=== PATIENT | female | born 1980 | race Caucasian/White ===

== ENCOUNTER 2018-03-24 23:42 | Emergency (ER) | payer BC, SELFPAY ==
--- OUTSIDE RECORDS SUMMARY | 2018-03-24 23:44 | XMS REPORT ---
:1980 Author Organization [employer] Care Team Providers Name Role Phone Joycelyn Fields Provider Role Unavailable Allergies, Adverse Reactions, Alerts Substance Reaction Event Type Iodine Info Not Available Drug Allergy Problems Problem Type Condition Code Onset Dates Condition Status Assessment Well woman exam with routine Z01.419 Active gynecological exam Assessment Thyroid nodule E04.1 Active Problem Thyroid nodule E04.1 Active Assessment Encounter for surveillance of Z30.44 Active vaginal ring hormonal contraceptive device Medications Medication Code System Code Instructions Start Date End Date Status Dosage NuvaRing [facility] [id number] 0.12-0.015 Active 1 ring MG/24HR Vaginal 1 ring q 3 weeks Results No Known Results Summary Purpose [employer] Submission
--- OUTSIDE RECORDS SUMMARY | 2018-03-24 23:44 | XMS REPORT | Clinical Summary ---
:1980 Author Organization [facility] Address [address] [place] [address] Care Team Providers Name Role Phone Laz Rosa MD Primary Care Provider Allergies Active Allergy Reactions Severity Noted Date Comments Iodine High 03/01/2018 Facial swelling/redness, watery eyes. Current Medications Prescription Sig. Disp. Refills Start Date End Date Status levothyroxine Take 25 mcg by Active (SYNTHROID, LEVOXYL) mouth every 25 mcg tablet morning. etonogestrel-ethinyl Insert 1 each into Active estradiol (NUVARING) the vagina every 0.12-0.015 mg/24 hr 28 days. Insert vaginal ring vaginally and leave in place for 3 consecutive weeks, then remove for 1 week. traZODone (DESYREL) Take 100 mg by Active 100 MG tablet mouth nightly. multivitamin Take 1 tablet by Active (THERAGRAN) tablet mouth daily. docosahexanoic Take by mouth Active acid/epa (FISH OIL daily. ORAL) cyanocobalamin, Take by mouth Active vitamin B-12, daily. (VITAMIN B-12 ORAL) cholecalciferol, Take by mouth Active vitamin D3, (VITAMIN daily. D3 ORAL) SELENIUM ORAL Take by mouth Active daily. ferrous sulfate, Take by mouth Active dried (IRON, DRIED, daily. ORAL) MAGNESIUM ORAL Take by mouth Active daily. MELATONIN ORAL Take by mouth Active nightly. acetaminophen-codein Take 1 tablet by 30 tablet 0 03/14/2018 e (TYLENOL WITH mouth every 4 8 CODEINE #3) 300-30 (four) hours as mg per tablet needed for moderate pain for up to 7 days. docusate sodium Take 1 capsule 10 capsule 0 03/14/2018 (COLACE) 100 MG (100 mg total) by 8 capsule mouth daily as needed for constipation for up to 5 days. Active Problems Problem Noted Date Neck mass 03/14/2018 Encounters Date Type Specialty Care Team Description 03/15/2018 Patient Outreach Pippa Velasquez RN 03/14/2018 - Hospital Encounter General Internal Melvin Fuentes Neck mass; 03/15/2018 Medicine MD Baldo Multinodular goiter 03/14/2018 Anesthesia Event Plastic Surgery Lolis Herrera MD 03/14/2018 Procedure Pass Plastic Surgery 03/14/2018 Surgery Plastic Surgery Melvin Fuentes EXCISION OF ANTERIOR MD Baldo NECK MASS, RIGHT THYROID LOBECTOMY POSSIBLE TOTAL THYROIDECTOMY 03/01/2018 Pre-Admit Testing Pre-Admission Melvin Fuentes Preop examination Appointment Testing MD Baldo (Primary Dx) 03/01/2018 Anesthesia Event Pre-Admission Enzo Bates NP 02/08/2018 Hospital Encounter Radiology Melvin Fuentes Multinodular goiter ; MD Baldo Neck mass 02/08/2018 Hospital Encounter Radiology Melvin Fuentes Multinodular goiter ; MD Baldo Neck mass 02/08/2018 Hospital Encounter Radiology Melvin Fuentes Multinodular goiter ; MD Baldo Neck mass 02/08/2018 Ancillary Orders Radiology Melvin Fuentes Multinodular goiter; MD Baldo Neck mass 01/30/2018 Transcribe Orders Radiology Melvin Fuentes Multinodular goiter (Primary Dx); MD Baldo Neck mass 01/25/2018 Hospital Encounter Melvin Mendez MD 01/25/2018 Ancillary Orders Radiology Melvin Fuentes MD after 03/23/2017 Social History Tobacco Use Types Packs/Day Years Used Date Never Smoker Smokeless Tobacco: Never Used Alcohol Use Drinks/Week oz/Week Comments Yes 4-5 Standard drinks or equivalent 2.4 - 3.0 Sex Assigned at Date Recorded Not on file Last Filed Vital Signs Vital Sign Reading Time Taken Blood Pressure 117/61 03/15/2018 8:29 AM CDT Pulse 65 03/15/2018 8:29 AM CDT Temperature 36.1 C (96.9 F) 03/15/2018 8:29 AM CDT Respiratory Rate 18 03/15/2018 8:29 AM CDT Oxygen Saturation 97% 03/15/2018 8:29 AM CDT Inhaled Oxygen Concentration - - Weight 89.4 kg (197 lb) 03/14/2018 7:54 AM CDT Height 172.7 cm (5' 8") 03/01/2018 2:51 PM CDT Body Mass Index 29.95 03/14/2018 7:54 AM CDT Plan of Treatment Health Maintenance Due Date Last Done Comments CERVICAL CANCER SCREENING 1999 INFLUENZA VACCINE 05/23/2018 Implants Implanted Type Area Director [employer] Device Expiration Model / Identifier Date Serial / Lot Drain Wnd 1/8in 49in Rnd End Perfrtn W/ Trocar 10in Hol Ptrn - [id number] Surgical Left: [employer] 01/20/2023 [id number] / Implanted: 03/14/2018 (Quantity not on file) Implants; Neck DIVISION / Expanders; [id number] Extenders; Surgical Wires Procedures Procedure Name Priority Date/Time Associated Diagnosis Comments ANESTHESIA INTUBATION Routine 03/14/2018 10:18 AM CDT Procedure Note - Dulec Higgins, BUSINESS DEVELOPMENT SALES EXECUTIVE - 03/14/2018 10:18 AM CDT Airway Date/Time: 03/14/2018 9:17 AM Performed by: DULCE HIGGINS Authorized by: LOLIS HERRERA Location: OR Difficult Airway: No Anesthesiologist: LOLIS HERRERA Resident/BUSINESS DEVELOPMENT SALES EXECUTIVE/AA: DULCE HIGGINS Performed by: resident/BUSINESS DEVELOPMENT SALES EXECUTIVE/AA Preoxygenated with 100% O2: Yes C-spine Precautions Maintained Throughout: Yes Mask Ventilation: Assisted mask (#8 OPA) Final Airway Type: Endotracheal airway Final Endotracheal Airway: Reinforced tube and ETT Cuffed: Yes Technique Used: Direct laryngoscopy Devices/Methods Used in Placement: Intubating stylet Insertion Site: Oral Blade Type: Rabago Laryngoscope Blade/Videolaryngoscope Blade Size: 2 ETT Size (mm): 6.5 Cuff at minimum occlusion pressure: Yes Measured from: Lips ETT to Lips (cm): 22 Placement Verified by: CO2 detection, direct visualization and equal breath sounds Laryngoscopic view: Grade I - full view of glottis Rapid Sequence Induction (RSI): No Modified RSI: No Number of Attempts at Approach: 1 Atraumatic; Dentition unchanged/intact EXCISION OF ANTERIOR NECK MASS, RIGHT THYROID 03/14/2018 9:35 AM CDT Neck mass LOBECTOMY POSSIBLE TOTAL THYROIDECTOMY Special Needs POSSIBLE EXTENDED RECOVERY NEEDED after 03/23/2017 Results Estimated GFR (03/15/2018 4:40 AM)Only the most recent of3 resultswithin the time period is included. Component Value Ref Range GFR Non Af Amer >90 mL/min/1.73 m2 GFR Af Amer >90 mL/min/1.73 m2 Comment: Chronic kidney disease: <60 mL/min/1.73m2 Kidney failure: <15 mL/min/1.73m2 The estimated GFR is calculated from the IDMS-traceable Modification of Diet in Renal Disease Equation. The accuracy of the calculation is poor when the creatinine is normal. Calculated values >90 mL/min/1.73m2 are not reported. This equation has not been validated in children (<18 years), women, the elderly (>70 years), or ethnic groups other than Caucasians and Americans. Specimen Performing Laboratory Plasma specimen [facility] DEPARTMENT OF PATHOLOGY AND GENOMIC MEDICINE [address] [place] [id number] CBC with platelet and differential (03/15/2018 4:40 AM) Component Value Ref Range WBC 9.01 4.50 - 11.00 k/uL RBC 3.88 (L) 4.20 - 5.50 m/uL HGB 12.4 12.0 - 16.0 g/dL HCT 36.2 (L) 37.0 - 47.0 % MCV 93.3 82.0 - 100.0 fL MCH 32.0 27.0 - 34.0 pg MCHC 34.3 31.0 - 37.0 g/dL RDW - SD 39.8 37.0 - 55.0 fL MPV 9.3 8.8 - 13.2 fL Platelet count 204 150 - 400 k/uL Nucleated RBC 0.00 /100 WBC Neutrophils 87.2 (H) 39.0 - 69.0 % Lymphocytes 8.3 (L) 25.0 - 45.0 % Monocytes 4.1 0.0 - 10.0 % Eosinophils 0.0 0.0 - 5.0 % Basophils 0.1 0.0 - 1.0 % Immature granulocytes 0.3Comment: "Immature granulocytes" 0.0 - 1.0 % (promyelocytes, myelocytes, metamyelocytes) Specimen Performing Laboratory Blood [facility] DEPARTMENT OF PATHOLOGY AND GENOMIC MEDICINE [address] [place] [id number] Phosphorus level (03/15/2018 4:40 AM) Component Value Ref Range Phosphorus 4.1 2.4 - 4.5 mg/dL Specimen Performing Laboratory Plasma specimen [facility] DEPARTMENT PATHOLOGY [facility] MEDICINE [address] [place] [address] Magnesium level (03/15/2018 4:40 AM) Component Value Ref Range Magnesium 2.0 1.6 - 2.6 mg/dL Specimen Performing Laboratory Plasma specimen [facility] DEPARTMENT PATHOLOGY AND [facility] MEDICINE [address] [place] [id number] Basic metabolic panel (03/15/2018 4:40 AM)Only the most recent of2 resultswithin the time period is included. Component Value Ref Range Sodium 140 135 - 148 mEq/L Potassium 4.0 3.5 - 5.0 mEq/L Chloride 103 98 - 112 mEq/L CO2 24 24 - 31 mEq/L Anion gap 13@ANIO 7 - 15 mEq/L BUN 9 6 - 20 mg/dL Creatinine 0.7 0.5 - 0.9 mg/dL Glucose 151 (H) 65 - 99 mg/dL Calcium 8.7 8.3 - 10.2 mg/dL Specimen Performing Laboratory Plasma specimen [facility] DEPARTMENT OF PATHOLOGY [address] [address] Parathyroid hormone (03/14/2018 10:00 PM) Component Value Ref Range PTH 32 15 - 65 pg/mL Specimen Performing Laboratory Blood [facility] DEPARTMENT OF PATHOLOGY AND [facility] MEDICINE [address] [place] [address] Albumin level (03/14/2018 10:00 PM) Component Value Ref Range Albumin 3.1 (L) 3.5 - 5.0 g/dL Specimen Performing Laboratory Plasma specimen [facility] DEPARTMENT OF PATHOLOGY [facility] MEDICINE [address] [place] [id number] Surgical pathology request (03/14/2018 11:15 AM) Component Value Ref Range Surgical pathology report See link below for PDF Lab Report Result status This is Final Report to [id number] Specimen Performing Laboratory [facility] DEPARTMENT OF PATHOLOGY AND GENOMIC MEDICINE [address] [place] [id number] POC , urine (03/14/2018 7:54 AM) Component Value Ref Range test urine, POC Negative QC done Yes Specimen Performing Laboratory Urine CBC hemogram (03/01/2018 3:07 PM) Component Value Ref Range WBC 6.39 4.50 - 11.00 k/uL RBC 3.94 (L) 4.20 - 5.50 m/uL HGB 12.8 12.0 - 16.0 g/dL HCT 37.2 37.0 - 47.0 % MCV 94.4 82.0 - 100.0 fL MCH 32.5 27.0 - 34.0 pg MCHC 34.4 31.0 - 37.0 g/dL RDW - SD 40.0 37.0 - 55.0 fL MPV 9.5 8.8 - 13.2 fL Platelet count 196 150 - 400 k/uL Nucleated RBC 0.00 /100 WBC Specimen Performing Laboratory Blood [facility] DEPARTMENT OF PATHOLOGY AND [facility] [address] [place] [address] Comprehensive metabolic panel (03/01/2018 3:07 PM) Component Value Ref Range Sodium 141 135 - 148 mEq/L Potassium 4.0 3.5 - 5.0 mEq/L Chloride 104 98 - 112 mEq/L CO2 25 24 - 31 mEq/L Anion gap 12 7 - 15 mEq/L Comment: Starting from January , anion gap calculation no longer incorporates potassium. Please note the change. BUN 13 6 - 20 mg/dL Creatinine 0.8 0.5 - 0.9 mg/dL Glucose 93 65 - 99 mg/dL Calcium 9.3 8.3 - 10.2 mg/dL Protein 7.1 6.3 - 8.3 g/dL Comment: [place] 4.6-7.0 g/dL 1 week 4.4-7.6 g/dL 7 months-1year5.1-7.3 g/dL 1-2 years5.6-7.5 g/dL >3 years6.0-8.0 g/dL 18-150 6.3-8.3 g/dL Albumin 3.4 (L) 3.5 - 5.0 g/dL A/G ratio 0.9 0.7 - 3.8 Alkaline phosphatase 59 35 - 104 U/L AST 18 10 - 35 U/L ALT 20 5 - 50 U/L Total bilirubin <0.2 0.0 - 1.2 mg/dL Specimen Performing Laboratory Plasma specimen [facility] DEPARTMENT OF PATHOLOGY AND [facility] MEDICINE [address] [place] [address] Cytology (non-gynecological) request (02/08/2018 12:56 PM)Only the most recent of2 resultswithin the time period is included. Component Value Ref Range Cytology (non-gynecological) report See link below for PDF Lab Report Result status This is Final Report to [id number] Specimen Performing Laboratory [facility] DEPARTMENT OF PATHOLOGY AND GENOMIC MEDICINE [address] [place] [address] US Needle Biopsy (02/08/2018 12:50 PM) Specimen Performing Laboratory [facility] [address] [place] [address] Narrative EXAMINATION:US NEEDLE BIOPSY CLINICAL HISTORY:E04.2 Nontoxic multinodular goiter, R22.1 Localized swellingmass and lumpneck, E04.2 - R22.1 TECHNIQUE: The risks, benefits, and alternatives were discussed with the patient and written informed consent was obtained. A site for needle injury was selected and the skin was prepped and draped in the usual sterile fashion. After local administration of 1% buffered lidocaine, a tiny dermatotomy was made. Using ultrasound guidance, multiple aspirates through the lipomatous density in the midline of the neck was performed. An adequacy check was performed. The patient was discharged to the radiology recovery area for monitoring prior to discharge. They have been instructed to follow-up with Dr. Fuentes for the results of the biopsy. EBL: None. Complications: None. Assistants: None. IMPRESSION: Fine-needle aspiration was performed for assessment of the midline fatty density. [facility]-[id number] Procedure Note [facility], Radiology Results Incoming - 02/08/2018 4:45 PM CDT EXAMINATION: US NEEDLE BIOPSY CLINICAL HISTORY: E04.2 Nontoxic multinodular goiter, R22.1 Localized swelling mass and lump neck, E04.2 - R22.1 TECHNIQUE: The risks, benefits, and alternatives were discussed with the patient and written informed consent was obtained. A site for needle injury was selected and the skin was prepped and draped in the usual sterile fashion. After local administration of 1% buffered lidocaine, a tiny dermatotomy was made. Using ultrasound guidance, multiple aspirates through the lipomatous density in the midline of the neck was performed. An adequacy check was performed. The patient was discharged to the radiology recovery area for monitoring prior to discharge. They have been instructed to follow-up with Dr. Fuentes for the results of the biopsy. EBL: None. Complications: None. Assistants: None. IMPRESSION: Fine-needle aspiration was performed for assessment of the midline fatty density. [id number] US Thyroid Biopsy (02/08/2018 12:50 PM) Specimen Performing Laboratory [address] [address] Narrative EXAMINATION:US THYROID BIOPSY CLINICAL HISTORY:E04.2 Nontoxic multinodular goiter, R22.1 Localized swellingmass and lumpneck, E 04.2 - R22.1 COMPARISON:None. FINDINGS: Following sterile skin preparation local anesthesia multiple aspirates were performed on a 1.5 cm complex mass in the right lobe of thyroid gland. Aspirates were sent to pathology for further evaluation. An adequacy check was performed. IMPRESSION: Successful biopsy of a complex mass in the right thyroid gland. [id number] Procedure Note Interface, Radiology Results Incoming - 02/08/2018 4:46 PM CDT EXAMINATION: US THYROID BIOPSY CLINICAL HISTORY: E04.2 Nontoxic multinodular goiter, R22.1 Localized swelling mass and lump neck, E 04.2 - R22.1 COMPARISON: None. FINDINGS: Following sterile skin preparation local anesthesia multiple aspirates were performed on a 1.5 cm complex mass in the right lobe of thyroid gland. Aspirates were sent to pathology for further evaluation. An adequacy check was performed. IMPRESSION: Successful biopsy of a complex mass in the right thyroid gland. [id number] US Soft Tissue Head Neck (02/08/2018 12:50 PM) Specimen Performing Laboratory [address] [address] Narrative EXAMINATION:US SOFT TISSUE HEAD NECK CLINICAL HISTORY:E04.2 Nontoxic multinodular goiter, R22.1 Localized swellingmass and lumpneck, E04.2 - R22.1 COMPARISON:None. FINDINGS: Ultrasound of the midline of the neck demonstrates a mobile 2.4 x 1.6 x 2.5 cm subcutaneous fatty density, compatible system with a lipoma. IMPRESSION: Small lipoma. [facility]-[id number] Procedure Note Interface, Radiology Results Incoming 02/08/2018 4:43 PM CDT EXAMINATION: US SOFT TISSUE HEAD NECK CLINICAL HISTORY: E04.2 Nontoxic multinodular goiter, R22.1 Localized swelling mass and lump neck, E04.2 - R22.1 COMPARISON: None. FINDINGS: Ultrasound of the midline of the neck demonstrates a mobile 2.4 x 1.6 x 2.5 cm subcutaneous fatty density, compatible system with a lipoma. IMPRESSION: Small lipoma. [id number] US Thyroid External Study (12/29/2017 3:31 PM) Specimen Performing Laboratory [facility] [address] [place] [address] Narrative This exam was not acquired at a [facility] facility and has not been interpreted by a [facility] Provider.The exam was imported into our imaging system for comparisons purposes. after 03/23/2017 Insurance Payer Benefit Plan / Group Subscriber ID Type Phone Address BCBS BCBS CHOICE PPO/FEDERAL EMPL PPO xxxxxxxxxxxx PPO Work: [id number] [facility] [phone] [place], [place] Home: [id number] [phone] [facility]
[2018-03-25 01:05] LABS: Barbiturates NEGATIVE; Benzodiazepines NEGATIVE; Cocaine NEGATIVE; Opiates NEGATIVE; Phencyclidine NEGATIVE; THC Cannibis NEGATIVE
[2018-03-25 01:06] LABS: METHAMPHETAM POSITIVE (NEGATIVE)
--- NOTE | 2018-03-25 01:27 | ER ---
Nurse's Notes [facility] Name: Sara Lynn Age: 37 yrs Sex: Female : 1980 Arrival Date: 03/24/2018 Time: 23:44 Bed 13 Private MD: Laz Rosa V Diagnosis: Chest pain, unspecified;Adverse effect of amphetamines Presentation: 03/25 00:02 Presenting complaint: Patient states: pt reports chest pain and palpitations, took na tl3 pill last night that she thought was ecstasy, in ER now being seen for same. Transition of care: patient was not received from another setting of care. Onset of symptoms was March 25, 2018. Risk Assessment: Do you want to hurt yourself or someone else? Patient reports no desire to harm self or others. Initial Sepsis Screen: Does the patient meet any 2 criteria? No. Patient's initial sepsis screen is negative. Does the patient have a suspected source of infection? No. Patient's initial sepsis screen is negative. Care prior to arrival: None. 00:02 Method Of Arrival: Ambulatory tl3 00:02 Acuity: TEODORO 3 tl3 Triage Assessment: 00:05 General: Appears distressed, uncomfortable, Behavior is cooperative. Pain: Pain tl3 currently is 7 out of 10 on a pain scale. Cardiovascular: Reports chest pain, diaphoresis, lightheadedness, nausea, palpitations. DIRECTOR OF OPERATIONS SUPPORT: 00:05 LMP 02/2018 tl3 Historical: - Allergies: 00:05 Iodine; tl3 - Home Meds: 00:05 levothyroxine 25 mcg tab [Active]; tl3 - PSHx: 00:05 fibroidectomy; tl3 - Immunization history:: Adult Immunizations up to date. - Social history:: Smoking status: Patient/guardian denies using tobacco, never smoked. - Ebola Screening: : Patient denies travel to an Ebola-affected area in the 21 days before illness onset. Screenin:23 Abuse screen: Denies threats or abuse. Denies injuries from another. Nutritional bs1 screening: No deficits noted. Tuberculosis screening: No symptoms or risk factors identified. Fall Risk None identified. Assessment: 00:20 General: Appears uncomfortable, Behavior is cooperative, anxious. Pain: Complains of bs1 pain in mid chest Pain does not radiate. Pain began gradually. Neuro: Level of Consciousness is awake, alert, obeys commands, Oriented to person, place, time, situation, Appropriate for age. Cardiovascular: Reports chest pain, shortness of breath, Heart tones S1 S2 present Capillary refill < 3 seconds Patient's skin is warm and dry. Respiratory: Airway is patent Trachea midline Respiratory effort is even, unlabored, Respiratory pattern is regular, symmetrical, Breath sounds are clear bilaterally. GI: No deficits noted. No signs and/or symptoms were reported involving the gastrointestinal system. : No deficits noted. No signs and/or symptoms were reported regarding the genitourinary system. EENT: No deficits noted. No signs and/or symptoms were reported regarding the EENT system. Derm: Skin is intact, Skin is pink, warm \T\ dry. Musculoskeletal: Circulation, motion, and sensation intact. Capillary refill < 3 seconds, Range of motion: intact in all extremities. 01:30 Reassessment: Patient appears in no apparent distress at this time. Patient and/or bs1 family updated on plan of care and expected duration. Pain level reassessed. Patient is alert, oriented x 3, equal unlabored respirations, skin warm/dry/pink. Patient states symptoms have improved. Vital Signs: 00:05 BP 143 / 96; Pulse 110; Resp 20; Temp 98.7; Pulse Ox 100% ; Weight 90.72 kg; Height 5 tl3 ft. 8 in. (172.72 cm); Pain 7/10; 01:00 BP 129 / 71; Pulse 82; Resp 16; Pulse Ox 99% on R/A; bs1 01:35 BP 131 / 70; Pulse 85; Resp 15 S; Temp 98(O); Pulse Ox 100% on R/A; Pain 0/10; bs1 00:05 Body Mass Index 30.41 (90.72 kg, 172.72 cm) tl3 ED Course: 02 23:44 Patient arrived in ED. es 23:45 Laz Rosa MD is Private Physician. es 06 00:04 Triage completed. tl3 00:05 Arm band placed on left wrist. tl3 00:21 Eklin Encarnacion NP is PHCP. pm1 00:21 Zach Franklin MD is Attending Physician. pm1 00:30 Vaishnavi Lr, JAMES is Primary Nurse. bs1 01:23 Patient has correct armband on for positive identification. Bed in low position. Call bs1 light in reach. Side rails up X 1. awake overnight monitor on. Pulse ox on. NIBP on. 01:23 No provider procedures requiring assistance completed. Patient did not have IV access bs1 during this emergency room visit. Patient maintains SpO2 saturation greater than 95% on room air. 01:25 Laz Rosa MD is Referral Physician. pm1 Administered Medications: No medications were administered Outcome: : Discharge ordered by . pm1 01:37 Discharged to home ambulatory, with significant other. bs1 01:37 Condition: stable 01:37 Discharge instructions given to patient, Instructed on discharge instructions, follow up and referral plans. Demonstrated understanding of instructions, follow-up care. 01:38 Patient left the ED. bs1 Signatures: Vidhya Calix Patrick, NP C PROGRAMMER pm1 Vaishnavi Lr, RN RN bs1 Alcira Salazar RN RN tl3
--- NOTE | 2018-03-25 01:27 | EDPHYS ---
Physician Documentation [facility] Name: Sara Lynn Age: 37 yrs Sex: Female : 1980 Arrival Date: 03/24/2018 Time: 23:44 Bed 13 Private MD: Laz Rosa V ED Physician Zach Franklin HPI: 03/25 01:30 This 37 yrs old Female presents to ER via Ambulatory with complaints of Chest pm1 Pain. 01:30 The patient or guardian reports chest pain that is located primarily in the mid-sternal pm1 area. The pain does not radiate. Associated signs and symptoms: Pertinent negatives: abdominal pain, cough, diaphoresis, dizziness, headache, nausea, shortness of breath, vomiting. The chest pain is described as aching. Duration: The patient or guardian reports a single episode. Severity of pain: in the emergency department the pain has improved markedly. Onset of chest pain after taking amphetamines with her boyfriend. 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 - Social history:: Smoking status: Patient/guardian denies using tobacco, never smoked. - Ebola Screening: : Patient denies travel to an Ebola-affected area in the 21 days before illness onset. ROS: 01:30 Constitutional: Negative for fever, chills, and weight loss, Eyes: Negative for injury, pm1 pain, redness, and discharge, ENT: Negative for injury, pain, and discharge, Neck: Negative for injury, pain, and swelling. 01:30 Respiratory: Negative for shortness of breath, cough, wheezing, and pleuritic chest pain, Abdomen/GI: Negative for abdominal pain, nausea, vomiting, diarrhea, and constipation, Back: Negative for injury and pain, MS/Extremity: Negative for injury and deformity, Skin: Negative for injury, rash, and discoloration, Neuro: Negative for headache, weakness, numbness, tingling, and seizure. 01:30 Cardiovascular: Positive for chest pain, Negative for edema, palpitations. Exam: 01:30 Constitutional: This is a well developed, well nourished patient who is awake, alert, pm1 and in no acute distress. Head/Face: Normocephalic, atraumatic. Eyes: Pupils equal round and reactive to light, extra-ocular motions intact. Lids and lashes normal. Conjunctiva and sclera are non-icteric and not injected. Cornea within normal limits. Periorbital areas with no swelling, redness, or edema. ENT: Nares patent. No nasal discharge, no septal abnormalities noted. Tympanic membranes are normal and external auditory canals are clear. Oropharynx with no redness, swelling, or masses, exudates, or evidence of obstruction, uvula midline. Mucous membranes moist. Neck: Trachea midline, no thyromegaly or masses palpated, and no cervical lymphadenopathy. Supple, full range of motion without nuchal rigidity, or vertebral point tenderness. No Meningismus. Chest/axilla: Normal chest wall appearance and motion. Nontender with no deformity. No lesions are appreciated. 01:30 Respiratory: Lungs have equal breath sounds bilaterally, clear to auscultation and percussion. No rales, rhonchi or wheezes noted. No increased work of breathing, no retractions or nasal flaring. Abdomen/GI: Soft, non-tender, with normal bowel sounds. No distension or tympany. No guarding or rebound. No evidence of tenderness throughout. Back: No spinal tenderness. No costovertebral tenderness. Full range of motion. Skin: Warm, dry with normal turgor. Normal color with no rashes, no lesions, and no evidence of cellulitis. MS/ Extremity: Pulses equal, no cyanosis. Neurovascular intact. Full, normal range of motion. 01:30 Cardiovascular: Rate: normal, Rhythm: regular, Edema: is not appreciated. 01:30 ECG was reviewed by the Attending Physician. NSR 01:30 Neuro: Orientation: is normal, Motor: is normal, moves all fours, strength is 5/5 in all extremities. Vital Signs: 00:05 BP 143 / 96; Pulse 110; Resp 20; Temp 98.7; Pulse Ox 100% ; Weight 90.72 kg; Height 5 tl3 ft. 8 in. (172.72 cm); Pain 7/10; 01:00 BP 129 / 71; Pulse 82; Resp 16; Pulse Ox 99% on R/A; bs1 01:35 BP 131 / 70; Pulse 85; Resp 15 S; Temp 98(O); Pulse Ox 100% on R/A; Pain 0/10; bs1 00:05 Body Mass Index 30.41 (90.72 kg, 172.72 cm) tl3 MDM: 00:21 Patient medically screened. pm1 01:24 Data reviewed: vital signs. Data interpreted: Pulse oximetry: on room air is 100 %. pm1 Interpretation: normal. Counseling: I had a detailed discussion with the patient and/or guardian regarding: the historical points, exam findings, and any diagnostic results supporting the discharge/admit diagnosis, to return to the emergency department if symptoms worsen or persist or if there are any questions or concerns that arise at home. 03/25 00:25 Order name: UDS; Complete Time: 01:24 pm1 03/25 01:17 Order name: Urine Dipstick--Ancillary (enter results); Complete Time: 01:32 ms 03/25 00:25 Order name: Urine Dipstick-Ancillary (obtain specimen); Complete Time: 00:45 pm1 03/25 00:25 Order name: Urine Test (obtain specimen); Complete Time: 00:45 pm1 03/25 01:01 Order name: EKG; Complete Time: 01:01 pm1 03/25 01:17 Order name: Urine --Ancillary (enter results); Complete Time: 01:32 ms 03/25 01:01 Order name: EKG - Nurse/Tech; Complete Time: 01:21 pm1 Administered Medications: No medications were administered Disposition: 04:34 Co-signature as Attending Physician, Zach Franklin MD I agree with the assessment and tw4 plan of care. Disposition: 03/25/18 01:27 Discharged to Home. Impression: Chest pain, unspecified, Adverse effect of amphetamines. - Condition is Stable. - Discharge Instructions: Alcohol and Drug Addiction, Finding Treatment, Stimulant Use Disorder-Amphetamines, Nonspecific Chest Pain. - Medication Reconciliation Form, Thank You Letter form. - Follow up: Emergency Department; When: As needed; Reason: Worsening of condition. Follow up: Laz Rosa MD; When: 2 - 3 days; Reason: Recheck today's complaints, Continuance of care, Re-evaluation by your physician. - Problem is new. - Symptoms have improved. 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 Impression: Chest pain, unspecified; Adverse bs1 effect of amphetamines. Condition is Stable. Forms are Medication Reconciliation Form, Thank You Letter, Antibiotic Education, Prescription Opioid Use. Follow up: Emergency Department; When: As needed; Reason: Worsening of condition. Follow up: Laz Rosa; When: 2 - 3 days; Reason: Recheck today's complaints, Continuance of care, Re-evaluation by your physician. Problem is new. Symptoms have improved. pm1
[2018-03-25 01:28] LABS: Urine Blood NEGATIVE (NEG); Urine Glucose NEGATIVE (NEG); Urine Protein NEGATIVE (NEG); Urine Specific Gravity >1.030 (1.005-1.030); Urine pH 5.5 (5.0-7.0)
--- NOTE | 2018-03-25 10:40 | EKG ---
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
== END 2018-03-25 01:38 | disposition home or self-care (01) ==
LOC: ER 23:42
DX: R07.9 Chest pain, unspecified (principal); T43.625A Adverse effect of amphetamines, initial encounter; Z91.048 Other nonmedicinal substance allergy status
CPT/HCPCS: 80307; 81003; 81025; 93005; 99284